=== PATIENT | female | born 1985 | race Caucasian/White ===

== ENCOUNTER 2017-01-24 19:27 | Emergency (ER) | payer BC, OTHER ==
[~2017-01-24] VITALS: Ht 167.6 cm; Wt 67.6 kg
[~2017-01-24 19:27] MED LIST: FLOMAX0.4 MG PO; NORCO 5-325 TA1 EACH PO; OXYCODONE; ZOFRAN4 MG PO
[2017-01-24] MEDS ORDERED: NUVARING VAGIN1 EACH VG (19:39)
[2017-01-24 20:20] LABS: URINE BILIRUBIN NEGATIVE (Negative); URINE BLOOD 2+ (Negative); URINE COLOR YELLOW; URINE GLUCOSE-RANDOM* NEGATIVE (Negative); URINE KETONES NEGATIVE (Negative); URINE NITRITE NEGATIVE (Negative); URINE PROTEIN (DIPSTICK) NEGATIVE (Negative); URINE UROBILINOGEN 0.2 E.U./dl (0.2-1.0)
[2017-01-24 20:25] LABS: ABSOLUTE NEUTROPHILS 2.9 thou/uL (1.4-8.2); BASOPHILS 0.4 % (0.0-2.0); EOSINOPHILS 1.4 % (0.0-3.0); HEMATOCRIT 36.7 % (37.0-47.0); HEMOGLOBIN 13.1 gm/dL (12.0-15.0); LYMPHOCYTES 31.6 % (24.0-44.0); MCH 31.3 pg (26.0-34.0); MCHC 35.6 g/dL (28.0-37.0); MCV 87.9 fL (80.0-100.0); MONOCYTES 11.8 % (1.0-8.0); PLATELET COUNT 214 thou/uL (150-400); POLYS 54.8 % (36.0-66.0); RBC 4.17 mil/uL (4.20-5.00); RDW 11.5 % (10.5-14.5); WBC 5.2 thou/uL (4.0-11.0)
[2017-01-24 20:30] LABS: MANUAL DIFF NO
[2017-01-24 20:33] LABS: CASTS None Seen /LPF (None Seen); CRYSTALS None Seen /LPF (None Seen); SQUAMOUS 4-10 Moderate /LPF (0-3)
[2017-01-24 20:34] LABS: URINE RBC 3-10 Few /HPF (0-2); URINE WBC 0-5 Rare /HPF (0-5)
[2017-01-24 20:37] LABS: CALCIUM 9.1 mg/dL (8.5-10.1); POTASSIUM 3.5 mmol/L (3.5-5.1)
[2017-01-24] MEDS ORDERED: IBUPROFEN 600600 M1 PO (21:45)
[2017-01-24 22:08] VITALS: BP 110/74
== END 2017-01-24 21:46 | disposition home or self-care (01) ==
LOC: ER 19:27
PROVIDERS: Emergency Medicine
DX: N20.1 Calculus of ureter (principal); Z87.442 Personal history of urinary calculi